=== PATIENT | male | born 1980 | race Caucasian/White ===

== ENCOUNTER 2018-10-06 13:28 | Emergency (ER) | payer OTHER ==
[2018-10-06] MEDS ORDERED: NS 1,000 ML IV ONE (13:57)
[2018-10-06] MEDS ORDERED: ACETAMINOPHEN 500 MG TAB PO ONE (14:02)
[2018-10-06 14:12] LABS: PLATELET COUNT 242 10^3/uL (150-400)
--- NOTE | 2018-10-06 14:15 | EDPHY ---
H & P Time Seen by Provider: 10/06/18 13:42 HPI/ROS: CHIEF COMPLAINT: Shortness of breath, cough, chest tightness. HISTORY OF PRESENT ILLNESS: Patient states that last night around 9 he developed a fever, shortness of breath, rapid heart rate and body aches. He was up in [place], [place] and had arrived there on . He came from [place] to [place] on . He is from the and arrived in [place] on the 30 of September. He states he has also had a sore throat, feels his glands are swollen, has had a cough with some greenish sputum. Also some nausea but no vomiting or diarrhea. No abdominal pain. He also states his chest feels tight. The headache that he developed up in [place] is now better. He denies any dysuria or diarrhea. He did not get a flu shot. REVIEW OF SYSTEMS: Constitutional: Fevers, chills, body aches Eyes: No discharge. ENT: Sore throat, congestion Cardiovascular: Rapid heart rate, some chest tightness Respiratory: Per HPI Gastrointestinal: No abdominal pain, no vomiting. Genitourinary: No dysuria. Musculoskeletal: No back pain. Skin: No rashes. Neurological: Headache, now improved General Appearance: Alert, no distress. Tachycardic Eyes: Pupils equal and round no pallor or injection. ENT, Mouth: Mucous membranes moist. Normal oropharynx. Respiratory: There are no retractions, lungs are clear to auscultation. Cardiovascular: Tachycardic rate and normal rhythm. No murmurs rubs or gallops Gastrointestinal: Abdomen is soft and nontender, no masses, bowel sounds normal. Neurological: Awake, alert, cranial nerves intact, no focal neurologic deficits. Skin: Warm and dry, no rashes. Musculoskeletal: Neck is supple nontender. Extremities are symmetrical, full range of motion, no edema. Psychiatric: Patient is oriented X 3, there is no agitation. Medical/surgical history: History of TIA and PFO. Was on clopidogrel no longer. Social history: Lives in the . No tobacco or drugs. Occasional alcohol. Uncle on mother's side with [place] at 55. Smoking Status: Never smoked Constitutional: Initial Vital Signs Temperature (C) 37.6 C 10/06/18 13:32 Heart Rate 118 H 10/06/18 13:32 Respiratory Rate 20 10/06/18 13:32 Blood Pressure 168/95 H 10/06/18 13:32 O2 Sat (%) 94 10/06/18 13:32 O2 Delivery Mode Room Air Allergies/Adverse Reactions: No Known Allergies Allergy (Unverified 10/06/18 13:31) Home Medications: Medication Instructions Recorded Oseltamivir Phosphate [Tamiflu 75 75 mg PO BID 5 Days #10 cap 10/06/18 mg (*)] Medical Decision Making - Diagnostics EKG Interpretation: EKG performed for chest tightness and rapid heart rate shows sinus tachycardia. Normal axis, normal intervals, no acute ST T-wave changes to suggest ischemia or infarct. Impression sinus tachycardia otherwise normal EKG. Imaging Results: Imaging Impressions Chest X-Ray 10/06/18 13:57 Impression: Mild peribronchial thickening which can be seen with airways disease /bronchitis. Imaging: I viewed and interpreted images myself ED Course/Re-evaluation: Re-evaluation and discussion of test results with patient. Feeling slightly better although still mildly tachycardic and coughing. Discussed risks benefits of Tamiflu and patient chooses to start Tamiflu. He will be in the [place] area until Monday when he is scheduled to fly to [place]. I reviewed return precautions in detail and he may choose to fly from [place] back to the . Differential Diagnosis: Differential diagnosis includes but is not limited to acute mountain sickness, influenza, pneumonia, acute coronary syndrome, pulmonary embolism. After evaluation patient flu A positive with no signs of other cardiopulmonary source. Although remains tachycardic is otherwise hemodynamically stable. No hypoxia. No vomiting to preclude oral medications. Patient will be in a hotel in the [place] area until Monday. I reviewed and he voiced understanding of return precautions if he develops worsening shortness of breath, chest pain, other concerning new symptoms. Stable for discharge. - Data Points Laboratory Results: Laboratory Results 10/06/18 13:45 10/06/18 13:45 10/06/18 10/06/18 10/06/18 13:56 13:47 13:45 WBC RBC Hgb Hct MCV MCH MCHC RDW Plt Count MPV Neut % (Auto) Lymph % (Auto) [place] % (Auto) Eos % (Auto) Baso % (Auto) Nucleat RBC Rel Count Absolute Neuts (auto) Absolute Lymphs (auto) Absolute Monos (auto) Absolute Eos (auto) Absolute Basos (auto) Absolute Nucleated RBC Immature Gran % Immature Gran # Platelet Estimate D-Dimer Sodium 140 mEq/L mEq/L (135-145) Potassium 3.8 mEq/L mEq/L (3.5-5.2) Chloride 110 mEq/L mEq/L (97-110) Carbon Dioxide 22 mEq/l mEq/l (22-31) Anion Gap 8 mEq/L mEq/L (6-14) BUN 13 mg/dL mg/dL (7-23) Creatinine 0.9 mg/dL mg/dL (0.7-1.3) Estimated GFR > 60 Glucose 97 mg/dL mg/dL (70-100) Calcium 9.0 mg/dL mg/dL (8.5-10.4) POC Troponin I 0.01 ng/mL ng/mL (0.00-0.08) Nasal Influenza A PCR FLU A DETECTED H (NEGATIVE) Nasal Influenza B PCR NEGATIVE FOR FLU B (NEGATIVE) 10/06/18 10/06/18 13:45 13:45 WBC 10.35 10^3/uL H 10^3/uL (3.80-9.50) RBC 5.20 10^6/uL 10^6/uL (4.40-6.38) Hgb 15.1 g/dL g/dL (13.7-17.5) Hct 42.4 % % (40.0-51.0) MCV 81.5 fL fL (81.5-99.8) MCH 29.0 pg pg (27.9-34.1) MCHC 35.6 g/dL g/dL (32.4-36.7) RDW 12.8 % % (11.5-15.2) Plt Count 242 10^3/uL 10^3/uL (150-400) MPV 9.7 fL fL (8.7-11.7) Neut % (Auto) Pending Lymph % (Auto) Pending [place] % (Auto) Pending Eos % (Auto) Pending Baso % (Auto) Pending Nucleat RBC Rel Count Pending Absolute Neuts (auto) Pending Absolute Lymphs (auto) Pending Absolute Monos (auto) Pending Absolute Eos (auto) Pending Absolute Basos (auto) Pending Absolute Nucleated RBC Pending Immature Gran % Pending Immature Gran # Pending Platelet Estimate Pending D-Dimer 0.41 ug/mLFEU ug/mLFEU (0.00-0.50) Sodium Potassium Chloride Carbon Dioxide Anion Gap BUN Creatinine Estimated GFR Glucose Calcium POC Troponin I Nasal Influenza A PCR Nasal Influenza B PCR Medications Given: Discontinued Medications Acetaminophen (Tylenol) 1,000 mg PO EDNOW ONE Stop: 10/06/18 14:03 Last Admin: 10/06/18 14:05 Dose: 1,000 mg Sodium Chloride (Ns) 1,000 mls @ 0 mls/hr IV ONCE ONE; Wide Open PRN Reason: Protocol Stop: 10/06/18 13:58 Last Admin: 10/06/18 13:58 Dose: 1,000 mls Point of Care Test Results: Chemistry 10/06/18 13:47 POC Troponin I 0.01 ng/mL ng/mL (0.00-0.08) Departure - Departure Clinical Impression: Influenza A Condition: Fair Instructions: Influenza (ED) Additional Instructions: Take Tamiflu as prescribed. Also ibuprofen, 600 mg every 6 hr and acetaminophen , 1000 mg 3 times a day for fever and body aches. Stay well-hydrated. Return to the emergency department if you developed worsening shortness of breath, worsening chest pain, vomiting or inability to take medications or other concerning symptoms. Referrals: NONE *PRIMARY CARE P,. [Primary Care Provider] - As per Instructions Prescriptions: Oseltamivir Phosphate [Tamiflu 75 mg (*)] 75 mg PO BID 5 Days #10 cap
--- NOTE | 2018-10-06 15:05 | CPEKG ---
Test Reason : OPEN Blood Pressure : / mmHG Vent. Rate : 106 BPM Atrial Rate : 106 BPM P-R Int : 160 ms QRS Dur : 088 ms QT Int : 330 ms P-R-T Axes : 050 035 009 degrees QTc Int : 439 ms Sinus tachycardia Confirmed by Edwin Hillman ([id number]) on 10/06/2018 3:04:58 PM Referred By: Confirmed By:Edwin Hillman
[2018-10-06] MEDS ORDERED: IBUPROFEN 600 MG TAB PO ONE (15:09)
[2018-10-06 15:40] VITALS: BP 138/87
== END 2018-10-06 15:40 | disposition home or self-care (01) ==
DX: J10.1 Influenza due to other identified influenza virus with other respiratory manifestations (principal); E86.9 Volume depletion, unspecified
CPT/HCPCS: 84484-ER

== ENCOUNTER 2018-10-08 17:54 | Emergency (ER) | payer OTHER ==
[2018-10-08 18:09] VITALS: BP 132/98
--- NOTE | 2018-10-08 18:28 | EDPHY ---
H & P Stated Complaint: seen sat dx + flu rx tamiflu/employer requesting clearance for work/flight Time Seen by Provider: 10/08/18 18:24 HPI/ROS: HPI: This is a 38-year-old male who presents with Chief Complaint: seen sat dx + flu rx tamiflu/employer requesting clearance for work/flight Location: Chest Quality: Cough Duration: Several days Signs and Symptoms: + low-grade fever, no nausea, no vomiting, no diarrhea, no urinary symptoms, no chest pain, no shortness of breath,+ wheezing, + cough, no sore throat, no neck stiffness, no joint pain, no swollen glands, no ear pain, no rash Timing: Improved Severity: Moderate Context: 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 He has been taking Tamiflu as directed. He reports that he has a nonproductive harsh cough accompanied by mild wheezing. He has no history of lung disease. He reports that his high fevers have resolved and he has only had a low-grade fever of a T-max of a 100 F oral over the last 24 hr. He reports that overall he feels that he has improved. He is scheduled to fly tomorrow from [place] to [facility] to [facility]. Patient is a nonsmoker. Modifying Factors: Tamiflu, improving Comment: ROS: A comprehensive 10 system review of systems is otherwise negative aside from elements mentioned in the history of present illness. MEDICAL/SURGICAL/SOCIAL HISTORY: Medical history: PFO, TIA Surgical history: Denies Social history: Family history noncontributory. CONSTITUTIONAL: Ill but nontoxic-appearing adult white male, awake and alert, no obvious distress HEENT: Atraumatic and normocephalic, PERRL, EOMI. Nares patent; no rhinorrhea; no nasal mucosal edema. Tympanic membranes clear. Oropharynx clear, no exudate and moist pink mucosa. Airway patent. No lymphadenopathy. No meningismus. Cardiovascular: Normal S1/S2, regular rate, regular rhythm, without murmur rub or gallop. PULMONARY/CHEST: Symmetrical and nontender. Faint expiratory wheezing bilaterally. Good air movement. No accessory muscle usage. No tachypnea. ABDOMEN: Soft, nondistended, nontender, no rebound, no guarding, no peritoneal signs, no masses or organomegaly. No CVAT. EXTREMITIES: 2/2 pulses, strength 5/5, no deformities, no clubbing, no cyanosis or edema. NEUROLOGICAL: no focal neuro deficits. GCS 15. SKIN: Warm and dry, no erythema. no rash. Good capillary refill. Source: Patient Exam Limitations: No limitations - Personal History Current Tetanus Diphtheria and Acellular Pertussis (TDAP): Yes - Medical/Surgical History Hx Asthma: No Hx Chronic Respiratory Disease: No Hx Diabetes: No Hx Cardiac Disease: No Hx Renal Disease: No Hx Cirrhosis: No Hx Alcoholism: No Hx HIV/AIDS: No Hx Splenectomy or Spleen Trauma: No Other PMH: PFO. TIA - Social History Smoking Status: Never smoked Constitutional: Initial Vital Signs Temperature (C) 36.9 C 10/08/18 18:07 Heart Rate 70 10/08/18 18:07 Respiratory Rate 17 10/08/18 18:07 Blood Pressure 132/98 H 10/08/18 18:07 O2 Sat (%) 95 10/08/18 18:07 O2 Delivery Mode Room Air Allergies/Adverse Reactions: No Known Allergies Allergy (Verified 10/08/18 18:06) Home Medications: Medication Instructions Recorded Oseltamivir Phosphate [Tamiflu 75 75 mg PO BID 5 Days #10 cap 10/06/18 mg (*)] Albuterol [Proventil Inhaler HFA 1 - 2 puffs IH Q4H PRN #1 mdi 10/08/18 (*)] predniSONE [predniSONE TAPER] 10 mg PO DAILY 6 Days ea 10/08/18 Medical Decision Making ED Course/Re-evaluation: Vital signs reviewed and stable upon arrival. Patient has mild expiratory wheezing. Politely declines chest x-ray imaging as improving symptoms which I feel is appropriate. It appears that patient has bronchitis with influenza a. 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 He is to continue his Tamiflu as directed. This patient was seen under the supervision of my secondary supervising physician. I evaluated care for this patient independently. Discussed this patient with Dr. Juárez who did not see the patient. Differential Diagnosis: Adult fever including but not limited to viral syndromes including influenza, urinary tract infection, pneumonia and sepsis. Departure - Departure Disposition: Home, Routine, Self-Care Clinical Impression: Bronchitis with influenza, Influenza A Condition: Good Instructions: Influenza (ED), Acute Bronchitis (ED) Additional Instructions: Consume a minimum of 8-10 glasses of water or electrolyte fluid replacement drinks that include Gatorade, Powerade, Pedialyte. Eat a bland diet for the next 48 hours and then slowly advance as tolerated. Continue to take Tamiflu until completed. Take steroids daily x 6 days. Use albuterol inhaler every 4-6 hours as needed for wheezing, shortness of breath. Take Tylenol 650 mg every 4 hr and/or ibuprofen 600 mg with food every 8 hr as needed for pain, fever. Referrals: Armando Fritz, [Medical Doctor] - As per Instructions Stand Alone Forms: Work Excuse Prescriptions: Albuterol [Proventil Inhaler HFA (*)] 1 - 2 puffs IH Q4H PRN #1 mdi PRN Reason: Short Of Breath/Dyspnea predniSONE [predniSONE TAPER] 10 mg PO DAILY 6 Days ea
== END 2018-10-08 18:35 | disposition home or self-care (01) ==
DX: J11.1 Influenza due to unidentified influenza virus with other respiratory manifestations (principal)